=== PATIENT | male | born 2000 | race Caucasian/White ===

== ENCOUNTER 2023-12-21 19:44 | Emergency (ER) | payer OTHER ==
[~2023-12-21] VITALS: Ht 180.3 cm; Wt 95.3 kg
[2023-12-21 19:48] VITALS: BP 112/73; PULSE 94; RESP 18; TEMP 97.8; O2SAT 97
== END 2023-12-21 22:21 | disposition home or self-care (01) ==
LOC: MED 19:44
DX: R07.89 Other chest pain (principal); R06.89 Other abnormalities of breathing
CPT/HCPCS: 71045; 93005; 99283